=== PATIENT | male | born 1945 | race African-American/Black ===

== ENCOUNTER 2017-01-07 12:12 | Inpatient (IN) | payer MEDICARE, MEDICAID ==
[~2017-01-07] VITALS: Ht 193 cm; Wt 84.4 kg
[~2017-01-07 12:12] MED LIST: ALBU18HF2 IH; APIX5TAB PO; BECL8.7H BOTHNSTRLS; DIGO125T82 PO; DILT180T11 PO; DOCU-150 PO; Furosemide PO; HYDR-523 PO; METO-385 PO; NITR0.4T49 SL; OMEP20TA2 PO; SUCR1TAB PO; ZOLP5TAB8 PO
[2017-01-07] MEDS ORDERED: LORAZEPAM 2MG/ML CPJ IM ONE (13:30)
[2017-01-07 14:37] LABS: BASOPHILS % 0.8 % (0.0-2.0); EOSINOPHILS % 1.1 % (0.0-5.0); HEMATOCRIT. 42.6 % (42.0-52.0); HEMOGLOBIN. 14.8 g/dL (14.0-18.0); LYMPHOCYTES % 27.5 % (20.0-50.0); MEAN CORPUSCULAR HEMOGLOBIN 31.7 pg (28.0-32.0); MEAN CORPUSCULAR VOLUME 91.4 fL (80.0-94.0); MEAN PLATELET VOLUME 9.5 fl (7.4-10.4); MONOCYTES % 4.9 % (2.0-8.0); NEUTROPHILS % 65.7 % (40.0-76.0); PLATELET 130 x1000/uL (130-400); RED BLOOD CELL COUNT 4.66 mill/uL (4.7-6.1); RED CELL DISTRIBUTION WIDTH 13.6 % (11.6-14.6)
[2017-01-07 14:52] LABS: CARBON DIOXIDE 26 mEq/L (21-32); CHLORIDE 108 mEq/L (98-107)
[2017-01-07 15:22] LABS: TROPONIN I 0.03 ng/mL (0.00-0.04)
[2017-01-07] MEDS ORDERED: FUROSEMIDE 40MG/4ML VIAL IVP ONE (16:45)
[2017-01-07 17:40] VITALS: BP 109/74
[2017-01-07 17:42] VITALS: BP 109/74
[2017-01-07] MEDS ORDERED: METO50TA5 PO (18:00)
[2017-01-07] MEDS ORDERED: SACU1TAB PO (18:00)
[2017-01-07] MEDS ORDERED: MORPHINE SULFATE 2 MG/ML CPJ (NOT FOR IM USE) IV PRN (18:30)
[2017-01-07] MEDS ORDERED: IPRATROPIUM/ALBUTEROL 0.5-3(2.5)MG/3ML NEB HHN PRN (18:30)
[2017-01-07] MEDS ORDERED: ONDANSETRON HCL 4MG/2ML VIAL IV PRN (18:30)
[2017-01-07] MEDS: APIXABAN 5 MG TABLET PO SCH (18:35)
[2017-01-07 20:00] VITALS: BP 99/79
[2017-01-07] MEDS: METOPROLOL TARTRATE 50MG TABLET PO SCH (21:00)
[2017-01-08] VITALS (10 sets, daily range): BP systolic 83–142; BP diastolic 56–72
[2017-01-08] MEDS: FUROSEMIDE 40MG/4ML VIAL IVP SCH (08:03)
[2017-01-08] MEDS: APIXABAN 5 MG TABLET PO SCH ×2 (08:04→17:09)
[2017-01-08] MEDS: METOPROLOL TARTRATE 50MG TABLET PO SCH ×2 (08:28→21:00)
[2017-01-08] MEDS ORDERED: MEDICATION NOT ON FORMULARY EA (Sacubitril/Valsartan (Entresto 24 mg-26 mg Tablet) 1 EAC PO SCH (09:00)
[2017-01-08] MEDS ORDERED: NYSTATIN 100,000 UNITS/GM CREAM 15GM TOP PRN (14:00)
[2017-01-08] MEDS: LORAZEPAM 0.5MG TABLET PO PRN ×2 (14:16→21:13)
[2017-01-08] MEDS: MORPHINE SULFATE 4 MG/ML CPJ (NOT FOR IM USE) IV PRN (16:50)
[2017-01-09] VITALS (7 sets, daily range): BP systolic 95–121; BP diastolic 45–96
[2017-01-09 06:23] LABS: BASOPHILS % 0.7 % (0.0-2.0); EOSINOPHILS % 2.8 % (0.0-5.0); HEMATOCRIT. 43.1 % (42.0-52.0); HEMOGLOBIN. 14.8 g/dL (14.0-18.0); LYMPHOCYTES % 32.3 % (20.0-50.0); MEAN CORPUSCULAR HEMOGLOBIN 31.3 pg (28.0-32.0); MEAN CORPUSCULAR VOLUME 91.5 fL (80.0-94.0); MEAN PLATELET VOLUME 10.1 fl (7.4-10.4); MONOCYTES % 6.3 % (2.0-8.0); NEUTROPHILS % 57.9 % (40.0-76.0); PLATELET 120 x1000/uL (130-400); RED BLOOD CELL COUNT 4.71 mill/uL (4.7-6.1); RED CELL DISTRIBUTION WIDTH 13.5 % (11.6-14.6)
[2017-01-09] MEDS: METOPROLOL TARTRATE 50MG TABLET PO SCH ×3 (08:07→21:00)
[2017-01-09] MEDS: APIXABAN 5 MG TABLET PO SCH ×2 (08:07→18:07)
[2017-01-09] MEDS: FUROSEMIDE 40MG/4ML VIAL IVP SCH (08:07)
[2017-01-09 08:09] LABS: CARBON DIOXIDE 28 mEq/L (21-32); CHLORIDE 105 mEq/L (98-107)
[2017-01-09] MEDS ORDERED: POTASSIUM CHLORIDE 20MEQ/PACKET PO NR (10:00)
[2017-01-09] MEDS: MORPHINE SULFATE 4 MG/ML CPJ (NOT FOR IM USE) IV PRN ×2 (10:09→15:05)
[2017-01-09] MEDS ORDERED: DILTIAZEM HCL 5MG/ML 5ML VIAL IV NR (10:30)
[2017-01-09] MEDS: LORAZEPAM 0.5MG TABLET PO PRN (21:23)
[2017-01-10] VITALS (16 sets, daily range): BP systolic 74–151; BP diastolic 40–110
[2017-01-10 07:38] LABS: CARBON DIOXIDE 32 mEq/L (21-32); CHLORIDE 106 mEq/L (98-107)
[2017-01-10] MEDS: APIXABAN 5 MG TABLET PO SCH (07:47)
[2017-01-10] MEDS: METOPROLOL TARTRATE 50MG TABLET PO SCH ×2 (07:48→20:28)
[2017-01-10 07:58] LABS: BASOPHILS % 0.6 % (0.0-2.0); EOSINOPHILS % 2.8 % (0.0-5.0); HEMATOCRIT. 44.1 % (42.0-52.0); HEMOGLOBIN. 15.1 g/dL (14.0-18.0); LYMPHOCYTES % 33.3 % (20.0-50.0); MEAN CORPUSCULAR HEMOGLOBIN 31.5 pg (28.0-32.0); MEAN CORPUSCULAR VOLUME 91.9 fL (80.0-94.0); MONOCYTES % 6.6 % (2.0-8.0); NEUTROPHILS % 56.7 % (40.0-76.0); PLATELET 123 x1000/uL (130-400); RED CELL DISTRIBUTION WIDTH 13.8 % (11.6-14.6)
[2017-01-10] MEDS: MORPHINE SULFATE 4 MG/ML CPJ (NOT FOR IM USE) IV PRN ×2 (10:07→20:29)
[2017-01-10] MEDS: LORAZEPAM 0.5MG TABLET PO PRN (17:07)
[2017-01-10] MEDS: ENTRESTO PO SCH (20:28)
[2017-01-11] VITALS (26 sets, daily range): BP systolic 76–147; BP diastolic 36–92
[2017-01-11] MEDS: METOPROLOL TARTRATE 50MG TABLET PO SCH ×2 (08:52→21:58)
[2017-01-11] MEDS: ENTRESTO PO SCH ×2 (08:52→21:53)
[2017-01-11] MEDS ORDERED: MIDAZOLAM HCL 5 MG/5 ML VIAL ONE (10:26)
[2017-01-11] MEDS ORDERED: FENTANYL CITRATE/PF 50MCG/ML 2ML VIAL ONE (10:26)
[2017-01-11] MEDS ORDERED: LIDOCAINE HCL 1% 20ML VIAL (Pyxis) INJ ONE (10:27)
[2017-01-11] MEDS ORDERED: DIPHENHYDRAMINE 50MG/ML VIAL ONE (10:57)
[2017-01-11] MEDS ORDERED: ONDANSETRON HCL 4MG/2ML VIAL IV PRN (12:15)
[2017-01-11] MEDS ORDERED: HEPARIN SODIUM 1,000 UNIT/1ML VIAL IV ONE (14:58)
[2017-01-11] MEDS: ACETAMINOPHEN 325MG TABLET PO PRN ×2 (17:04→21:58)
[2017-01-12] VITALS: BP 94/73
[2017-01-12 02:00] VITALS: BP 105/77
[2017-01-12 04:00] VITALS: BP 81/55
[2017-01-12 05:48] VITALS: BP 104/74
== END 2017-01-12 07:45 | disposition home or self-care (01) | DRG 273 ==
LOC: ER 12:46 → EDBEDREQ 16:33 → EDBEDREQTM 16:33 → 7WST 16:40 → ENRESERV 16:48 → 3WST 01-09 10:01
PROVIDERS: ADMIT Internal Medicine Nephrology; ATTEND Internal Medicine Nephrology
PROC: 02583ZZ Destruction of Conduction Mechanism, Percutaneous Approach (ICD-10-PCS; principal; 2017-01-11)
PROC: 02K83ZZ Map Conduction Mechanism, Percutaneous Approach (ICD-10-PCS; 2017-01-11)
PROC: 4A0234Z Measurement of Cardiac Electrical Activity, Percutaneous Approach (ICD-10-PCS; 2017-01-11)
DX: I50.43 Acute on chronic combined systolic (congestive) and diastolic (congestive) heart failure (principal); J96.00 Acute respiratory failure, unspecified whether with hypoxia or hypercapnia; I42.9 Cardiomyopathy, unspecified; I47.1 Supraventricular tachycardia; J44.1 Chronic obstructive pulmonary disease with (acute) exacerbation; I27.2 Other secondary pulmonary hypertension; I11.0 Hypertensive heart disease with heart failure; I48.2 Chronic atrial fibrillation; Z95.810 Presence of automatic (implantable) cardiac defibrillator; E78.5 Hyperlipidemia, unspecified; K21.9 Gastro-esophageal reflux disease without esophagitis; Z91.19 Patient's noncompliance with other medical treatment and regimen; F41.9 Anxiety disorder, unspecified; Z91.041 Radiographic dye allergy status; Z88.0 Allergy status to penicillin; Z91.013 Allergy to seafood
CPT/HCPCS: 36415; 71010; 80048; 80053; 83735; 83880; 84484; 85025; 93005; 93650; 96372; 96374; 99285; C1731; C1732; C1893; J1200; J1644; J1940; J2060; J2250; J2270; J3010; J3490; J7030

== ENCOUNTER 2018-02-14 14:58 | Inpatient (IN) | payer MEDICARE, MEDICAID ==
[~2018-02-14] VITALS: Ht 193 cm; Wt 79.4 kg
[~2018-02-14 14:58] MED LIST changes: -ALBU18HF2 IH; -BECL8.7H BOTHNSTRLS; -DIGO125T82 PO; -DILT180T11 PO; -DOCU-150 PO; -Furosemide PO; -HYDR-523 PO; -METO-385 PO; +METO-539 PO; -NITR0.4T49 SL; -OMEP20TA2 PO; +SACU1TAB PO; -SUCR1TAB PO; -ZOLP5TAB8 PO
[2018-02-14] MEDS ORDERED: LEVOFLOXACIN 750MG PREMIX 150 ML IV ONE (15:45)
[2018-02-14] MEDS ORDERED: SODIUM CHLORIDE 0.9% 1000ML BAG (SEPSIS BOLUS) IV ONE (15:45)
[2018-02-14 15:46] LABS: BASOPHILS % 0.6 % (0.0-2.0); EOSINOPHILS % 0.7 % (0.0-5.0); HEMATOCRIT. 46.4 % (42.0-52.0); HEMOGLOBIN. 15.8 g/dL (14.0-18.0); LYMPHOCYTES % 10.8 % (20.0-50.0); MEAN CORPUSCULAR HEMOGLOBIN 32.3 pg (28.0-32.0); MEAN CORPUSCULAR VOLUME 94.9 fL (80.0-94.0); MEAN PLATELET VOLUME 10.1 fl (7.4-10.4); MONOCYTES % 5.1 % (2.0-8.0); NEUTROPHILS % 82.8 % (40.0-76.0); PLATELET 126 x1000/uL (130-400); RED BLOOD CELL COUNT 4.88 mill/uL (4.7-6.1); RED CELL DISTRIBUTION WIDTH 13.7 % (11.6-14.6)
[2018-02-14 15:53] LABS: CHLORIDE 105 mEq/L (98-107)
[2018-02-14 16:17] LABS: INR 5.7
[2018-02-14 16:18] LABS: PARTIAL THROMBOPLASTIN TIME 38.1 sec (23.4-31.0); PROTHROMBIN TIME 55.2 sec (9.1-11.1)
[2018-02-14 17:06] LABS: CLARITY URINE CLEAR (CLEAR); COLOR URINE YELLOW (YELLOW); KETONES URINE NEGATIVE (NEGATIVE); LEUKOCYTE ESTERASE URINE NEGATIVE (NEGATIVE); NITRITE URINE NEGATIVE (NEGATIVE); OCCULT BLOOD URINE NEGATIVE (NEGATIVE); PH URINE 8.5 (4.5-8.0); PROTEIN URINE NEGATIVE (NEGATIVE); SPECIFIC GRAVITY URINE 1.018 (1.005-1.030); UROBILINOGEN URINE 0.2 E.U./dL (0.2-1.0)
[2018-02-14] MEDS ORDERED: IOHEXOL-350 100 ML BOTTLE ONE (19:24)
[2018-02-14] MEDS ORDERED: ASPIRIN 325MG EC TABLET PO ONE (20:00)
[2018-02-14] MEDS ORDERED: IPRATROPIUM/ALBUTEROL 0.5-3(2.5)MG/3ML NEB INH PRN (22:45)
[2018-02-14] MEDS ORDERED: ENOXAPARIN 40MG/0.4ML SYR SUBCUT SCH (22:45)
[2018-02-14 23:23] LABS: *AMPHETAMINES SCREEN URINE NEGATIVE (NEGATIVE); *BARBITURATES SCREEN URINE NEGATIVE (NEGATIVE); *BENZODIAZEPINES SCREEN URINE NEGATIVE (NEGATIVE); *COCAINE SCREEN URINE NEGATIVE (NEGATIVE); CANNABINOID URINE SCREEN PRESUMTIVE POSITIVE (NEGATIVE); METHADONE URINE SCREEN NEGATIVE (NEGATIVE); OPIATES URINE SCREEN PRESUMTIVE POSITIVE (NEGATIVE); PHENCYCLIDINE URINE SCREEN NEGATIVE (NEGATIVE)
[2018-02-14 23:40] VITALS: BP 154/83
[2018-02-15] VITALS: BP 154/83
[2018-02-15 04:00] VITALS: BP 121/68
[2018-02-15 07:36] LABS: CREATINE KINASE 65 IU/L (39-308); CREATINE KINASE MB FRACTION < 1.0 ng/mL (0.5-3.6)
[2018-02-15] MEDS: LORAZEPAM 2MG/ML CPJ IV PRN ×2 (09:12→22:29)
[2018-02-15] MEDS ORDERED: GUAIFENESIN/CODEINE 100-10MG/5ML UDC PO PRN (12:30)
[2018-02-15] MEDS ORDERED: IPRATROPIUM/ALBUTEROL 0.5-3(2.5)MG/3ML NEB HHN PRN (12:30)
[2018-02-15 12:41] VITALS: BP 132/86
[2018-02-15] MEDS ORDERED: NON FORMULARY PATIENT HOME MED EA PO SCH (14:00)
[2018-02-15] MEDS ORDERED: LEVOFLOXACIN 500MG PREMIX 100 ML IV SCH (16:00)
[2018-02-15 16:33] LABS: HEMATOCRIT 41.4 % (42.0-52.0); HEMOGLOBIN 13.9 g/dL (14.0-18.0); MEAN CORPUSCULAR HEMOGLOBIN 32.2 pg (28.0-32.0); MEAN CORPUSCULAR VOLUME 95.7 fL (80.0-94.0); PLATELET 106 x1000/uL (130-400); RED BLOOD CELL COUNT 4.32 mill/uL (4.7-6.1); RED CELL DISTRIBUTION WIDTH 13.7 % (11.6-14.6)
[2018-02-15 16:44] LABS: INR 1.2; PROTHROMBIN TIME 11.6 sec (9.1-11.1)
[2018-02-15 16:45] VITALS: BP 165/101
[2018-02-15 16:50] LABS: CHLORIDE 106 mEq/L (98-107)
[2018-02-15 17:41] LABS: CREATINE KINASE 78 IU/L (39-308); CREATINE KINASE MB FRACTION 1.1 ng/mL (0.5-3.6)
[2018-02-15] MEDS ORDERED: METOPROLOL TARTRATE 50MG TABLET PO SCH ×2 (19:15→21:00)
[2018-02-15] MEDS ORDERED: APIXABAN 5 MG TABLET PO SCH (19:30)
[2018-02-15] MEDS: METOPROLOL TARTRATE 50MG TABLET PO SCH (19:36)
[2018-02-15] MEDS: APIXABAN 5 MG TABLET PO SCH (19:37)
[2018-02-15 20:00] VITALS: BP 147/87
[2018-02-16] VITALS: BP 147/96
[2018-02-16 04:00] VITALS: BP 139/86
[2018-02-16 07:19] LABS: BASOPHILS % 0.5 % (0.0-2.0); EOSINOPHILS % 2.8 % (0.0-5.0); HEMATOCRIT. 40.6 % (42.0-52.0); HEMOGLOBIN. 13.9 g/dL (14.0-18.0); LYMPHOCYTES % 12.1 % (20.0-50.0); MEAN CORPUSCULAR HEMOGLOBIN 32.3 pg (28.0-32.0); MEAN CORPUSCULAR VOLUME 94.3 fL (80.0-94.0); MEAN PLATELET VOLUME 10.6 fl (7.4-10.4); MONOCYTES % 8.4 % (2.0-8.0); NEUTROPHILS % 76.2 % (40.0-76.0); PLATELET 106 x1000/uL (130-400); RED BLOOD CELL COUNT 4.31 mill/uL (4.7-6.1); RED CELL DISTRIBUTION WIDTH 13.8 % (11.6-14.6)
[2018-02-16 08:00] VITALS: BP 140/94
[2018-02-16] MEDS: APIXABAN 5 MG TABLET PO SCH (08:31)
[2018-02-16] MEDS: METOPROLOL TARTRATE 50MG TABLET PO SCH (08:32)
[2018-02-16] MEDS: LORAZEPAM 2MG/ML CPJ IV PRN (09:55)
[2018-02-16 11:24] LABS: CHLORIDE 106 mEq/L (98-107)
[2018-02-16 11:27] LABS: PHOSPHORUS 2.9 mg/dL (2.5-4.9)
[2018-02-16 12:00] VITALS: BP 128/82
[2018-02-16 14:22] VITALS: BP 128/82
== END 2018-02-16 15:13 | disposition home or self-care (01) | DRG 202 ==
LOC: ER 14:58 → 8WST 19:58 → EDBEDREQTM 20:03 → EDBEDREQ 20:03 → ENRESERV 22:02 → SUPCPDRO 22:42
PROVIDERS: ADMIT Internal Medicine Nephrology; ATTEND Internal Medicine Nephrology
DX: J20.9 Acute bronchitis, unspecified (principal); I42.0 Dilated cardiomyopathy; I50.42 Chronic combined systolic (congestive) and diastolic (congestive) heart failure; J44.0 Chronic obstructive pulmonary disease with (acute) lower respiratory infection; D68.9 Coagulation defect, unspecified; F41.9 Anxiety disorder, unspecified; F19.10 Other psychoactive substance abuse, uncomplicated; H54.62 Unqualified visual loss, left eye, normal vision right eye; I11.0 Hypertensive heart disease with heart failure; I48.2 Chronic atrial fibrillation; Z79.01 Long term (current) use of anticoagulants; Z91.19 Patient's noncompliance with other medical treatment and regimen; Z95.810 Presence of automatic (implantable) cardiac defibrillator; Z88.0 Allergy status to penicillin; Z91.041 Radiographic dye allergy status; Z91.013 Allergy to seafood; Z79.899 Other long term (current) drug therapy
CPT/HCPCS: 36415; 71045; 71275; 80048; 80076; 80305; 82550; 82553; 83605; 83735; 83880; 84100; 84145; 84484; 85027; 85379; 87804; 93005; 96365; 99285; J1956; J2060; J7030; J7050; J7620; Q9967

== ENCOUNTER 2018-03-05 11:11 | Inpatient (IN) | payer MEDICARE, MEDICAID ==
[~2018-03-05] VITALS: Ht 375.9 cm; Wt 78.9 kg
[2018-03-05] MEDS ORDERED: MECLIZINE 25MG TABLET PO ONE (13:15)
[2018-03-05 14:50] LABS: BASOPHILS % 0.4 % (0.0-2.0); HEMATOCRIT. 44.2 % (42.0-52.0); HEMOGLOBIN. 15.1 g/dL (14.0-18.0); LYMPHOCYTES % 25.7 % (20.0-50.0); MEAN CORPUSCULAR HEMOGLOBIN 32.2 pg (28.0-32.0); MEAN CORPUSCULAR VOLUME 93.9 fL (80.0-94.0); MEAN PLATELET VOLUME 10.2 fl (7.4-10.4); MONOCYTES % 7.3 % (2.0-8.0); NEUTROPHILS % 65.6 % (40.0-76.0); PLATELET 133 x1000/uL (130-400); RED CELL DISTRIBUTION WIDTH 13.5 % (11.6-14.6)
[2018-03-05 14:58] LABS: CHLORIDE 106 mEq/L (98-107)
[2018-03-05 15:07] LABS: ETHANOL BLOOD < 10 mg/dL
[2018-03-05 15:57] LABS: *AMPHETAMINES SCREEN URINE NEGATIVE (NEGATIVE); *BARBITURATES SCREEN URINE NEGATIVE (NEGATIVE); *BENZODIAZEPINES SCREEN URINE NEGATIVE (NEGATIVE); *COCAINE SCREEN URINE NEGATIVE (NEGATIVE); CANNABINOID URINE SCREEN PRESUMTIVE POSITIVE (NEGATIVE); METHADONE URINE SCREEN NEGATIVE (NEGATIVE); OPIATES URINE SCREEN NEGATIVE (NEGATIVE); PHENCYCLIDINE URINE SCREEN NEGATIVE (NEGATIVE)
[2018-03-05] MEDS ORDERED: ONDANSETRON HCL 4MG/2ML INJ IV ONE (16:33)
[2018-03-05] MEDS ORDERED: MORPHINE SULFATE 4 MG/ML CPJ (NOT FOR IM USE) IV ONE (16:33)
[2018-03-05] MEDS ORDERED: ASPIRIN 325MG TABLET PO ONE (16:45)
[2018-03-05] MEDS: MORPHINE SULFATE 4 MG/ML CPJ (NOT FOR IM USE) IV PRN (20:59)
[2018-03-05] MEDS ORDERED: ACETAMINOPHEN 650MG/20.3ML UDC GT PRN (23:00)
[2018-03-05] MEDS ORDERED: DIPHENHYDRAMINE 50MG/ML VIAL IV PRN (23:00)
[2018-03-05] MEDS ORDERED: LORAZEPAM 2MG/ML CPJ IV PRN (23:00)
[2018-03-05] MEDS ORDERED: ONDANSETRON HCL 4MG/2ML INJ IV PRN (23:00)
[2018-03-05] MEDS ORDERED: CLONIDINE 0.1MG TABLET PO PRN (23:00)
[2018-03-05] MEDS ORDERED: ACETAMINOPHEN 325MG TABLET PO PRN (23:00)
[2018-03-06] VITALS (7 sets, daily range): BP systolic 119–141; BP diastolic 83–91
[2018-03-06] MEDS: DEXT 5%/0.45% NACL 1000ML 1,000 ML IV SCH ×2 (00:57→09:21)
[2018-03-06] MEDS: MORPHINE SULFATE 4 MG/ML CPJ (NOT FOR IM USE) IV PRN ×3 (05:59→20:01)
[2018-03-06 07:32] LABS: BASOPHILS % 0.5 % (0.0-2.0); CHLORIDE 106 mEq/L (98-107); EOSINOPHILS % 2.7 % (0.0-5.0); HEMATOCRIT. 43.6 % (42.0-52.0); HEMOGLOBIN. 14.7 g/dL (14.0-18.0); LYMPHOCYTES % 37.5 % (20.0-50.0); MEAN CORPUSCULAR HEMOGLOBIN 31.8 pg (28.0-32.0); MEAN CORPUSCULAR VOLUME 94.5 fL (80.0-94.0); MEAN PLATELET VOLUME 10.2 fl (7.4-10.4); NEUTROPHILS % 50.3 % (40.0-76.0); PLATELET 127 x1000/uL (130-400); RED BLOOD CELL COUNT 4.61 mill/uL (4.7-6.1); RED CELL DISTRIBUTION WIDTH 13.5 % (11.6-14.6)
[2018-03-06 07:39] LABS: CLARITY URINE CLEAR (CLEAR); COLOR URINE YELLOW (YELLOW); KETONES URINE TRACE (NEGATIVE); LEUKOCYTE ESTERASE URINE NEGATIVE (NEGATIVE); NITRITE URINE NEGATIVE (NEGATIVE); OCCULT BLOOD URINE NEGATIVE (NEGATIVE); PH URINE 5.5 (4.5-8.0); PROTEIN URINE NEGATIVE (NEGATIVE); SPECIFIC GRAVITY URINE 1.024 (1.005-1.030); UROBILINOGEN URINE 0.2 E.U./dL (0.2-1.0)
[2018-03-06 07:47] LABS: CREATINE KINASE 49 IU/L (39-308); CREATINE KINASE MB FRACTION 1.7 ng/mL (0.5-3.6); PHOSPHORUS 3.7 mg/dL (2.5-4.9)
[2018-03-06] MEDS ORDERED: ENOXAPARIN 40MG/0.4ML SYR SUBCUT SCH (09:00)
[2018-03-06] MEDS ORDERED: FUROSEMIDE 20MG/2ML VIAL IVP NR (13:30)
[2018-03-06] MEDS: METOPROLOL TARTRATE 50MG TABLET PO SCH ×2 (16:05→20:29)
[2018-03-06] MEDS: APIXABAN 5 MG TABLET PO SCH (16:13)
[2018-03-06 16:27] LABS: CREATINE KINASE 46 IU/L (39-308); CREATINE KINASE MB FRACTION 1.4 ng/mL (0.5-3.6)
[2018-03-06] MEDS ORDERED: LEVOFLOXACIN 500MG PREMIX 100 ML IV SCH (20:00)
[2018-03-06] MEDS ORDERED: METOPROLOL TARTRATE 25MG TABLET PO SCH (21:00)
[2018-03-07] VITALS: BP 115/79
[2018-03-07 04:00] VITALS: BP 125/92
[2018-03-07 06:40] LABS: BASOPHILS % 0.6 % (0.0-2.0); EOSINOPHILS % 3.1 % (0.0-5.0); HEMATOCRIT. 42.6 % (42.0-52.0); HEMOGLOBIN. 14.5 g/dL (14.0-18.0); LYMPHOCYTES % 34.7 % (20.0-50.0); MEAN CORPUSCULAR VOLUME 93.9 fL (80.0-94.0); MONOCYTES % 7.7 % (2.0-8.0); NEUTROPHILS % 53.9 % (40.0-76.0); PLATELET 128 x1000/uL (130-400); RED BLOOD CELL COUNT 4.54 mill/uL (4.7-6.1); RED CELL DISTRIBUTION WIDTH 13.3 % (11.6-14.6)
[2018-03-07 06:48] LABS: CHLORIDE 104 mEq/L (98-107)
[2018-03-07 08:00] VITALS: BP 136/90
[2018-03-07] MEDS: APIXABAN 5 MG TABLET PO SCH (08:59)
[2018-03-07] MEDS: METOPROLOL TARTRATE 50MG TABLET PO SCH (08:59)
[2018-03-07 09:18] VITALS: BP 136/90
== END 2018-03-07 10:30 | disposition home or self-care (01) | DRG 202 ==
LOC: ER 11:11 → EDBEDREQ 16:23 → EDBEDREQTM 16:23 → 8WST 17:01 → EDBEDREQ 17:05 → EDBEDREQTM 17:05 → ENRESERV 22:07
PROVIDERS: ADMIT Internal Medicine Nephrology; ATTEND Internal Medicine Nephrology
DX: J20.9 Acute bronchitis, unspecified (principal); I50.43 Acute on chronic combined systolic (congestive) and diastolic (congestive) heart failure; F12.90 Cannabis use, unspecified, uncomplicated; I11.0 Hypertensive heart disease with heart failure; H53.40 Unspecified visual field defects; I25.10 Atherosclerotic heart disease of native coronary artery without angina pectoris; F41.9 Anxiety disorder, unspecified; R42 Dizziness and giddiness; R07.89 Other chest pain; I48.2 Chronic atrial fibrillation; I50.9 Heart failure, unspecified; Z95.810 Presence of automatic (implantable) cardiac defibrillator; Z82.49 Family history of ischemic heart disease and other diseases of the circulatory system; Z86.73 Personal history of transient ischemic attack (TIA), and cerebral infarction without residual deficits; Z87.891 Personal history of nicotine dependence; Z88.0 Allergy status to penicillin; Z91.013 Allergy to seafood; Z91.048 Other nonmedicinal substance allergy status; Z79.01 Long term (current) use of anticoagulants
CPT/HCPCS: 36415; 71045; 80048; 80305; 82010; 82550; 82553; 83735; 83880; 84100; 84484; 93005; 96374; 96375; 99285; G0482; J1650; J1940; J1956; J2060; J2270; J2405; J8597

== ENCOUNTER 2018-07-18 05:15 | Emergency (ER) | payer MEDICARE, MEDICAID ==
[~2018-07-18] VITALS: Ht 193 cm; Wt 82.0 kg
[2018-07-18 07:35] VITALS: BP 116/73
== END 2018-07-18 07:45 | disposition home or self-care (01) ==
LOC: ER 05:15
DX: H60.91 Unspecified otitis externa, right ear (principal); I50.9 Heart failure, unspecified; F41.9 Anxiety disorder, unspecified; I48.91 Unspecified atrial fibrillation; F12.10 Cannabis abuse, uncomplicated; Z95.0 Presence of cardiac pacemaker; Z79.899 Other long term (current) drug therapy; Z88.0 Allergy status to penicillin; Z91.048 Other nonmedicinal substance allergy status
CPT/HCPCS: 99283

== ENCOUNTER 2018-07-21 03:02 | Emergency (ER) | payer MEDICARE, MEDICAID ==
[~2018-07-21] VITALS: Ht 190.5 cm; Wt 95.0 kg
[2018-07-21 03:24] VITALS: BP 180/112
== END 2018-07-21 05:36 | disposition home or self-care (01) ==
LOC: ER 03:34
DX: F12.10 Cannabis abuse, uncomplicated (principal); I50.9 Heart failure, unspecified; R00.2 Palpitations; Z95.0 Presence of cardiac pacemaker; Z91.041 Radiographic dye allergy status; Z88.0 Allergy status to penicillin; Z91.013 Allergy to seafood; Z79.899 Other long term (current) drug therapy
CPT/HCPCS: 99283

== ENCOUNTER 2019-12-15 20:09 | Inpatient (IN) | payer MEDICARE, MEDICAID ==
[~2019-12-15] VITALS: Ht 193 cm; Wt 77.2 kg
[2019-12-15] MEDS: NITROGLYCERIN 0.4MG TABLET SL SL PRN ×2 (22:26→22:38)
[2019-12-15 22:28] LABS: BASOPHILS % 1.3 % (0.0-2.0); EOSINOPHILS % 2.4 % (0.0-5.0); HEMATOCRIT. 42.9 % (42.0-52.0); HEMOGLOBIN. 14.7 g/dL (14.0-18.0); LYMPHOCYTES % 35.3 % (20.0-50.0); MEAN CORPUSCULAR HEMOGLOBIN 32.4 pg (28.0-32.0); MEAN CORPUSCULAR VOLUME 94.9 fL (80.0-94.0); MEAN PLATELET VOLUME 10.7 fl (7.4-10.4); MONOCYTES % 7.5 % (2.0-8.0); NEUTROPHILS % 53.5 % (40.0-76.0); PLATELET 109 x1000/uL (130-400); RED BLOOD CELL COUNT 4.52 mill/uL (4.7-6.1); RED CELL DISTRIBUTION WIDTH 14.4 % (11.6-14.6)
[2019-12-15 22:36] LABS: CHLORIDE 106 mEq/L (98-107)
[2019-12-15 22:39] LABS: PROTHROMBIN TIME 10.9 sec (9.6-11.0)
[2019-12-16] MEDS ORDERED: SODIUM CHLORIDE 0.9% 500 ML IV ONE (00:01)
[2019-12-16] MEDS ORDERED: ONDANSETRON HCL 4MG/2ML INJ IV PRN (12:15)
[2019-12-16] MEDS: ACETAMINOPHEN 325MG TABLET PO PRN (12:50)
[2019-12-16] MEDS ORDERED: ENOXAPARIN 40MG/0.4ML SYR SUBCUT SCH (13:00)
[2019-12-16] MEDS: LOSARTAN POTASSIUM 25 MG TABLET PO SCH (14:00)
[2019-12-16 14:42] LABS: LDL CHOLESTEROL 42 mg/dL (5-100)
[2019-12-16 14:45] LABS: HDL CHOLESTEROL 86 mg/dL (40-59)
[2019-12-16] MEDS: APIXABAN 5 MG TABLET PO SCH (15:00)
[2019-12-16] MEDS: ALPRAZOLAM 0.25 MG TABLET PO PRN (18:48)
[2019-12-16 20:01] LABS: *AMPHETAMINES SCREEN URINE NEGATIVE (NEGATIVE); *BARBITURATES SCREEN URINE NEGATIVE (NEGATIVE); CANNABINOID URINE SCREEN PRESUMTIVE POSITIVE (NEGATIVE); METHADONE URINE SCREEN NEGATIVE (NEGATIVE); OPIATES URINE SCREEN NEGATIVE (NEGATIVE); PHENCYCLIDINE URINE SCREEN NEGATIVE (NEGATIVE)
[2019-12-16 20:02] LABS: *BENZODIAZEPINES SCREEN URINE NEGATIVE (NEGATIVE); *COCAINE SCREEN URINE NEGATIVE (NEGATIVE)
[2019-12-16] MEDS: METOPROLOL TARTRATE 25MG TABLET PO SCH (22:23)
[2019-12-16] MEDS: FAMOTIDINE 20MG TABLET PO SCH (22:26)
[2019-12-16 23:00] VITALS: BP 118/95
[2019-12-17] MEDS: APIXABAN 5 MG TABLET PO SCH ×3 (00:01→20:55)
[2019-12-17] MEDS: ALPRAZOLAM 0.25 MG TABLET PO PRN ×2 (02:58→12:15)
[2019-12-17 04:00] VITALS: BP 99/64
[2019-12-17 06:20] LABS: BASOPHILS % 0.8 % (0.0-2.0); EOSINOPHILS % 2.7 % (0.0-5.0); HEMATOCRIT. 39.1 % (42.0-52.0); HEMOGLOBIN. 13.4 g/dL (14.0-18.0); MEAN CORPUSCULAR HEMOGLOBIN 32.1 pg (28.0-32.0); MEAN CORPUSCULAR VOLUME 94.1 fL (80.0-94.0); MEAN PLATELET VOLUME 10.5 fl (7.4-10.4); MONOCYTES % 8.5 % (2.0-8.0); PLATELET 108 x1000/uL (130-400); RED BLOOD CELL COUNT 4.16 mill/uL (4.7-6.1)
[2019-12-17 06:34] LABS: CHLORIDE 109 mEq/L (98-107)
[2019-12-17 08:00] VITALS: BP 125/74
[2019-12-17] MEDS: ASPIRIN 81MG TABLET PO SCH (09:50)
[2019-12-17] MEDS: LOSARTAN POTASSIUM 25 MG TABLET PO SCH (09:50)
[2019-12-17] MEDS: METOPROLOL TARTRATE 25MG TABLET PO SCH ×2 (09:51→21:00)
[2019-12-17] MEDS: ACETAMINOPHEN 325MG TABLET PO PRN (10:02)
[2019-12-17 12:00] VITALS: BP 117/82
[2019-12-17] MEDS ORDERED: FUROSEMIDE 20MG/2ML VIAL IVP NR (17:15)
[2019-12-17 18:00] VITALS: BP 124/83
[2019-12-17] MEDS: LORATADINE 10MG TABLET PO SCH (18:51)
[2019-12-17] MEDS ORDERED: KETOROLAC 15MG/ML VIAL IV PRN (19:00)
[2019-12-17 20:35] VITALS: BP 110/74
[2019-12-17] MEDS: FAMOTIDINE 20MG TABLET PO SCH (20:55)
[2019-12-17] MEDS: TRAMADOL 50MG TABLET PO PRN (21:07)
[2019-12-18 00:36] VITALS: BP 109/76
[2019-12-18 04:00] VITALS: BP 114/77
[2019-12-18 08:00] VITALS: BP 137/86
[2019-12-18] MEDS: ASPIRIN 81MG TABLET PO SCH (09:17)
[2019-12-18] MEDS: TRAMADOL 50MG TABLET PO PRN (09:17)
[2019-12-18] MEDS: METOPROLOL TARTRATE 25MG TABLET PO SCH ×2 (09:18→22:39)
[2019-12-18] MEDS: LORATADINE 10MG TABLET PO SCH (09:18)
[2019-12-18] MEDS: LOSARTAN POTASSIUM 25 MG TABLET PO SCH (09:18)
[2019-12-18] MEDS: APIXABAN 5 MG TABLET PO SCH ×2 (09:18→22:39)
[2019-12-18 10:06] LABS: BASOPHILS % 0.9 % (0.0-2.0); EOSINOPHILS % 2.7 % (0.0-5.0); HEMATOCRIT. 41.5 % (42.0-52.0); HEMOGLOBIN. 14.1 g/dL (14.0-18.0); LYMPHOCYTES % 24.7 % (20.0-50.0); MEAN CORPUSCULAR HEMOGLOBIN 32.3 pg (28.0-32.0); MEAN CORPUSCULAR VOLUME 95.4 fL (80.0-94.0); MEAN PLATELET VOLUME 10.8 fl (7.4-10.4); MONOCYTES % 5.4 % (2.0-8.0); NEUTROPHILS % 66.3 % (40.0-76.0); PLATELET 106 x1000/uL (130-400); RED BLOOD CELL COUNT 4.35 mill/uL (4.7-6.1); RED CELL DISTRIBUTION WIDTH 14.1 % (11.6-14.6)
[2019-12-18 10:33] LABS: CHLORIDE 106 mEq/L (98-107)
[2019-12-18] MEDS ORDERED: CLAR10 MT (11:06)
[2019-12-18 12:00] VITALS: BP 117/72
[2019-12-18] MEDS: ALPRAZOLAM 0.25 MG TABLET PO PRN (15:47)
[2019-12-18 16:00] VITALS: BP 127/85
[2019-12-18 20:00] VITALS: BP 120/88
[2019-12-18] MEDS: FAMOTIDINE 20MG TABLET PO SCH (22:39)
[2019-12-19] VITALS (7 sets, daily range): BP systolic 117–126; BP diastolic 78–90
[2019-12-19] MEDS: ALPRAZOLAM 0.25 MG TABLET PO PRN ×2 (02:29→21:00)
[2019-12-19] MEDS: LOSARTAN POTASSIUM 25 MG TABLET PO SCH (08:33)
[2019-12-19] MEDS: APIXABAN 5 MG TABLET PO SCH ×2 (08:33→20:55)
[2019-12-19] MEDS: ASPIRIN 81MG TABLET PO SCH (08:33)
[2019-12-19] MEDS: LORATADINE 10MG TABLET PO SCH (08:33)
[2019-12-19] MEDS: METOPROLOL TARTRATE 25MG TABLET PO SCH ×2 (08:36→20:55)
[2019-12-19] MEDS: TRAMADOL 50MG TABLET PO PRN ×2 (08:37→18:29)
[2019-12-19] MEDS ORDERED: IPRATROPIUM/ALBUTEROL 0.5-3(2.5)MG/3ML NEB HHN PRN (11:00)
[2019-12-19] MEDS: FAMOTIDINE 20MG TABLET PO SCH (20:55)
[2019-12-20 04:25] VITALS: BP 104/70
[2019-12-20 08:00] VITALS: BP 131/89
[2019-12-20] MEDS: LOSARTAN POTASSIUM 25 MG TABLET PO SCH (08:56)
[2019-12-20] MEDS: ASPIRIN 81MG TABLET PO SCH (08:56)
[2019-12-20] MEDS: METOPROLOL TARTRATE 25MG TABLET PO SCH (08:56)
[2019-12-20] MEDS: APIXABAN 5 MG TABLET PO SCH (08:56)
[2019-12-20] MEDS: LORATADINE 10MG TABLET PO SCH (08:56)
[2019-12-20 12:00] VITALS: BP 132/80
[2019-12-20 12:18] VITALS: BP 134/80
== END 2019-12-20 13:46 | disposition home or self-care (01) | DRG 205 ==
LOC: ER 20:09 → EDBEDREQTM 22:22 → 6WST 12-16 00:40 → EDBEDREQDT 12-16 00:43 → EDBEDREQ 12-16 00:43 → EDBEDREQTM 12-16 00:43 → ENRESERV 12-16 21:27
PROVIDERS: ADMIT Internal Medicine Nephrology; ATTEND Internal Medicine Nephrology
PROC: 4B02XTZ Measurement of Cardiac Defibrillator, External Approach (ICD-10-PCS; principal; 2019-12-17)
DX: M94.0 Chondrocostal junction syndrome [Tietze] (principal); J96.01 Acute respiratory failure with hypoxia; I50.23 Acute on chronic systolic (congestive) heart failure; I42.0 Dilated cardiomyopathy; I48.20 Chronic atrial fibrillation, unspecified; K21.9 Gastro-esophageal reflux disease without esophagitis; F12.10 Cannabis abuse, uncomplicated; I34.0 Nonrheumatic mitral (valve) insufficiency; I25.10 Atherosclerotic heart disease of native coronary artery without angina pectoris; I49.3 Ventricular premature depolarization; I11.0 Hypertensive heart disease with heart failure; Z95.810 Presence of automatic (implantable) cardiac defibrillator; Z79.01 Long term (current) use of anticoagulants; Z88.8 Allergy status to other drugs, medicaments and biological substances; Z91.041 Radiographic dye allergy status; Z88.0 Allergy status to penicillin; Z91.013 Allergy to seafood; Z87.891 Personal history of nicotine dependence
CPT/HCPCS: 36415; 71045; 80048; 80053; 80061; 80305; 83735; 83880; 84484; 85025; 85379; 93005; 93306; 96360; 99285; J1885; J1940; J2405; J7040

== ENCOUNTER 2021-11-18 07:01 | Inpatient (IN) | payer OTHER, MEDICAID ==
[2021-11-17 20:25] VITALS: BP 150/101
[~2021-11-18] VITALS: Ht 193 cm; Wt 93.0 kg
[~2021-11-18 07:01] MED LIST changes: +ALBU90AE INH; +BIMA2.5D4 EACHEYE; +COR3 PO; +FLOV44 IH; +FURO-152 PO; -METO-539 PO; +NITR0.4T49 SL; +PANT20TA17 PO; +SUCR1TAB PO
[2021-11-18] MEDS: NITROGLYCERIN 0.4MG TABLET SL SL PRN ×3 (07:30→07:55)
[2021-11-18] MEDS ORDERED: MORPHINE SULFATE 4 MG/ML CPJ (NOT FOR IM USE) IV ONE (07:45)
[2021-11-18 07:50] LABS: BASOPHILS % 0.3 % (0.0-2.0); EOSINOPHILS % 1.3 % (0.0-5.0); HEMATOCRIT. 46.5 % (42.0-52.0); HEMOGLOBIN. 15.7 g/dL (14.0-18.0); LYMPHOCYTES % 14.3 % (20.0-50.0); MEAN CORPUSCULAR HEMOGLOBIN 32.3 pg (28.0-32.0); MEAN CORPUSCULAR VOLUME 95.8 fL (80.0-94.0); MEAN PLATELET VOLUME 10.2 fl (7.4-10.4); MONOCYTES % 4.7 % (2.0-8.0); NEUTROPHILS % 79.4 % (40.0-76.0); PLATELET 135 x1000/uL (130-400); RED BLOOD CELL COUNT 4.86 mill/uL (4.7-6.1)
[2021-11-18 08:00] LABS: CHLORIDE 110 mEq/L (98-107)
[2021-11-18] MEDS ORDERED: MORPHINE SULFATE 2 MG/ML CPJ (NOT FOR IM USE) IV ONE (08:30)
[2021-11-18] MEDS ORDERED: NITROGLYCERIN OINT 1GM/INCH UDPKT TD ONE (08:30)
[2021-11-18 09:11] LABS: CLARITY URINE CLEAR (CLEAR); COLOR URINE YELLOW (YELLOW); KETONES URINE TRACE (NEGATIVE); LEUKOCYTE ESTERASE URINE TRACE (NEGATIVE); NITRITE URINE NEGATIVE (NEGATIVE); OCCULT BLOOD URINE NEGATIVE (NEGATIVE); PROTEIN URINE TRACE (NEGATIVE); SPECIFIC GRAVITY URINE 1.024 (1.005-1.030)
[2021-11-18] MEDS ORDERED: NON FORMULARY PATIENT HOME MED XX SCH (10:15)
[2021-11-18] MEDS ORDERED: FAMOTIDINE 20MG TABLET PO SCH (10:45)
[2021-11-18] MEDS: APIXABAN 5 MG TABLET PO SCH ×2 (10:47→17:38)
[2021-11-18] MEDS ORDERED: VISCOUS LIDOCAINE 2% 15 ML UDC MM STA (13:12)
[2021-11-18] MEDS ORDERED: MAGNESIUM/ALUMINUM HYDROXIDE/SIMETHICONE 30ML UDC PO ONE (13:15)
[2021-11-18] MEDS ORDERED: MORPHINE SULFATE 2 MG/ML CPJ (NOT FOR IM USE) IV NR (16:45)
[2021-11-18] MEDS ORDERED: HYDROCODONE/ACETAMINOPHEN 5/325MG TABLET PO ONE (17:30)
[2021-11-18] MEDS: SACUBITRIL/VALSARTAN 24MG/26MG TABLET PO SCH (17:39)
[2021-11-18] MEDS ORDERED: HYDROCODONE/ACETAMINOPHEN 5/325MG TABLET PO NR (20:15)
[2021-11-18 20:25] VITALS: BP 150/101
[2021-11-18] MEDS ORDERED: METO-396 MT (21:56)
[2021-11-18] MEDS ORDERED: NALOXONE HCL 0.4MG/ML VIAL IV PRN (22:00)
[2021-11-18] MEDS: MORPHINE SULFATE 2 MG/ML CPJ (NOT FOR IM USE) IV PRN (22:04)
[2021-11-18] MEDS: CARVEDILOL 3.125 MG TABLET PO SCH (22:09)
[2021-11-18] MEDS ORDERED: LIDOCAINE 5% PATCH TOP PRN (23:00)
[2021-11-19] VITALS: BP 145/86
[2021-11-19 04:00] VITALS: BP 150/79
[2021-11-19] MEDS: MORPHINE SULFATE 2 MG/ML CPJ (NOT FOR IM USE) IV PRN (06:47)
[2021-11-19 07:28] LABS: BASOPHILS % 0.6 % (0.0-2.0); EOSINOPHILS % 3.6 % (0.0-5.0); HEMATOCRIT. 41.7 % (42.0-52.0); HEMOGLOBIN. 14.3 g/dL (14.0-18.0); LYMPHOCYTES % 32.5 % (20.0-50.0); MEAN CORPUSCULAR HEMOGLOBIN 32.3 pg (28.0-32.0); MEAN CORPUSCULAR VOLUME 94.6 fL (80.0-94.0); MEAN PLATELET VOLUME 10.5 fl (7.4-10.4); MONOCYTES % 7.3 % (2.0-8.0); PLATELET 123 x1000/uL (130-400); RED BLOOD CELL COUNT 4.41 mill/uL (4.7-6.1)
[2021-11-19 07:43] LABS: CHLORIDE 108 mEq/L (98-107)
[2021-11-19] MEDS ORDERED: APIXABAN 5 MG TABLET PO SCH (07:50)
[2021-11-19 07:59] LABS: CREATINE KINASE 43 IU/L (39-308)
[2021-11-19 08:00] VITALS: BP 153/109
[2021-11-19] MEDS ORDERED: METOPROLOL SUCCINATE 50MG ER TABLET PO SCH (09:00)
[2021-11-19] MEDS ORDERED: NON FORMULARY PATIENT HOME MED PO SCH (09:00)
[2021-11-19] MEDS ORDERED: FUROSEMIDE 40MG/4ML VIAL IVP SCH (09:00)
[2021-11-19] MEDS ORDERED: PANTOPRAZOLE SODIUM 40 MG/VIAL IV SCH (09:00)
[2021-11-19] MEDS: CARVEDILOL 3.125 MG TABLET PO SCH (10:14)
[2021-11-19] MEDS: APIXABAN 5 MG TABLET PO SCH (10:14)
[2021-11-19] MEDS: SACUBITRIL/VALSARTAN 24MG/26MG TABLET PO SCH (10:15)
[2021-11-19] MEDS ORDERED: MORPHINE SULFATE 2 MG/ML CPJ (NOT FOR IM USE) IV NR (11:15)
[2021-11-19 12:00] VITALS: BP 155/97
[2021-11-19] MEDS ORDERED: ALPRAZOLAM 0.25 MG TABLET PO NR (12:45)
[2021-11-19] MEDS ORDERED: CALCIUM CARBONATE 500MG TABLET CHEW PO NR (12:45)
== END 2021-11-19 17:58 | disposition left against medical advice (07) | DRG 392 ==
LOC: ER 07:01 → 6WST 14:39 → EDBEDREQ 14:46 → EDBEDREQTM 14:46 → ENRESERV 17:44 → CANRESERV 17:44 → ENRESERV 18:05
PROVIDERS: ADMIT Internal Medicine; ATTEND Internal Medicine
DX: K21.9 Gastro-esophageal reflux disease without esophagitis (principal); I48.20 Chronic atrial fibrillation, unspecified; I42.0 Dilated cardiomyopathy; F41.9 Anxiety disorder, unspecified; I11.0 Hypertensive heart disease with heart failure; E78.5 Hyperlipidemia, unspecified; J44.9 Chronic obstructive pulmonary disease, unspecified; Z53.29 Procedure and treatment not carried out because of patient's decision for other reasons; I50.9 Heart failure, unspecified; I25.10 Atherosclerotic heart disease of native coronary artery without angina pectoris; Z20.822 Contact with and (suspected) exposure to COVID-19; F12.90 Cannabis use, unspecified, uncomplicated; Z95.810 Presence of automatic (implantable) cardiac defibrillator; Z87.891 Personal history of nicotine dependence; Z79.01 Long term (current) use of anticoagulants; Z79.899 Other long term (current) drug therapy; Z88.0 Allergy status to penicillin; Z91.041 Radiographic dye allergy status; Z91.013 Allergy to seafood
CPT/HCPCS: 36415; 71045; 80048; 80053; 81003; 82550; 82553; 83735; 83880; 84484; 85025; 87426; 87804; 93005; 93306; 99285; C9113; C9803; J1940; J2270

== ENCOUNTER 2022-01-25 17:43 | Emergency (ER) | payer MEDICARE, MEDICAID ==
[~2022-01-25] VITALS: Ht 193 cm; Wt 100.0 kg
[2022-01-25 18:50] LABS: BASOPHILS % 0.7 % (0.0-2.0); EOSINOPHILS % 1.5 % (0.0-5.0); HEMATOCRIT. 42.7 % (42.0-52.0); HEMOGLOBIN. 14.4 g/dL (14.0-18.0); LYMPHOCYTES % 27.5 % (20.0-50.0); MEAN CORPUSCULAR HEMOGLOBIN 31.9 pg (28.0-32.0); MEAN CORPUSCULAR VOLUME 94.2 fL (80.0-94.0); MEAN PLATELET VOLUME 9.8 fl (7.4-10.4); NEUTROPHILS % 63.3 % (40.0-76.0); PLATELET 116 x1000/uL (130-400); RED BLOOD CELL COUNT 4.53 mill/uL (4.7-6.1); RED CELL DISTRIBUTION WIDTH 13.9 % (11.6-14.6)
[2022-01-25 19:04] LABS: CHLORIDE 109 mEq/L (98-107)
[2022-01-25] MEDS: MAGNESIUM/ALUMINUM HYDROXIDE/SIMETHICONE 30ML UDC PO STA (19:30)
[2022-01-25] MEDS: VISCOUS LIDOCAINE 2% 15 ML UDC PO STA (19:30)
[2022-01-25] MEDS ORDERED: OMEP20TA15 MT (20:16)
[2022-01-25] MEDS ORDERED: XLV MT (20:39)
[2022-01-25 20:50] VITALS: BP 126/82
== END 2022-01-25 20:52 | disposition home or self-care (01) ==
LOC: ER 17:43
DX: K29.70 Gastritis, unspecified, without bleeding (principal); I48.91 Unspecified atrial fibrillation; Z88.0 Allergy status to penicillin; Z91.041 Radiographic dye allergy status; Z79.899 Other long term (current) drug therapy; Z98.890 Other specified postprocedural states
CPT/HCPCS: 36415; 80053; 85025; 93005; 99284

== ENCOUNTER 2022-02-17 13:47 | Emergency (ER) | payer MEDICARE, MEDICAID ==
[~2022-02-17] VITALS: Ht 190.5 cm; Wt 80.0 kg
[~2022-02-17 13:47] MED LIST changes: +FAMO-135 MT; +OMEP20TA15 MT; +XLV MT
[2022-02-17] MEDS ORDERED: metoprolol (13:54)
[2022-02-17] MEDS ORDERED: eliquis (13:54)
[2022-02-17] MEDS ORDERED: FAMOTIDINE 20MG/2ML VIAL IV ONE (14:30)
[2022-02-17] MEDS ORDERED: MAGNESIUM/ALUMINUM HYDROXIDE/SIMETHICONE 30ML UDC PO ONE (14:30)
[2022-02-17 14:52] LABS: BASOPHILS % 0.7 % (0.0-2.0); EOSINOPHILS % 1.2 % (0.0-5.0); HEMATOCRIT. 44.2 % (42.0-52.0); HEMOGLOBIN. 14.5 g/dL (14.0-18.0); LYMPHOCYTES % 21.5 % (20.0-50.0); MEAN CORPUSCULAR HEMOGLOBIN 31.3 pg (28.0-32.0); MEAN CORPUSCULAR VOLUME 95.1 fL (80.0-94.0); MEAN PLATELET VOLUME 10.9 fl (7.4-10.4); MONOCYTES % 4.6 % (2.0-8.0); PLATELET 107 x1000/uL (130-400); RED BLOOD CELL COUNT 4.65 mill/uL (4.7-6.1); RED CELL DISTRIBUTION WIDTH 13.8 % (11.6-14.6)
[2022-02-17 15:29] LABS: CHLORIDE 105 mEq/L (98-107)
[2022-02-17 16:00] VITALS: BP 143/85
[2022-02-17] MEDS ORDERED: VISCOUS LIDOCAINE 2% 15 ML UDC MM PRN (16:15)
== END 2022-02-17 17:09 | disposition left against medical advice (07) ==
LOC: ER 13:47
DX: K21.9 Gastro-esophageal reflux disease without esophagitis (principal); I11.0 Hypertensive heart disease with heart failure; I50.9 Heart failure, unspecified; E11.9 Type 2 diabetes mellitus without complications; I48.91 Unspecified atrial fibrillation; Z95.0 Presence of cardiac pacemaker
CPT/HCPCS: 36415; 71045; 80053; 83880; 84484; 85025; 93005; 96374; 99285; J3490

== ENCOUNTER 2022-04-06 07:17 | Emergency (ER) | payer MEDICARE, MEDICAID ==
[~2022-04-06] VITALS: Ht 182.9 cm; Wt 86.0 kg
[~2022-04-06 07:17] MED LIST changes: +eliquis; +metoprolol
[2022-04-06] MEDS ORDERED: NITROGLYCERIN OINT 1GM/INCH UDPKT TD ONE (08:30)
[2022-04-06 09:14] LABS: BASOPHILS % 0.5 % (0.0-2.0); EOSINOPHILS % 1.1 % (0.0-5.0); HEMATOCRIT. 43.7 % (42.0-52.0); HEMOGLOBIN. 14.7 g/dL (14.0-18.0); LYMPHOCYTES % 14.6 % (20.0-50.0); MEAN CORPUSCULAR HEMOGLOBIN 31.9 pg (28.0-32.0); MEAN CORPUSCULAR VOLUME 95.1 fL (80.0-94.0); MEAN PLATELET VOLUME 10.6 fl (7.4-10.4); MONOCYTES % 4.6 % (2.0-8.0); NEUTROPHILS % 79.2 % (40.0-76.0); PLATELET 124 x1000/uL (130-400); RED CELL DISTRIBUTION WIDTH 15.2 % (11.6-14.6)
[2022-04-06 09:22] LABS: CHLORIDE 110 mEq/L (98-107)
[2022-04-06 09:27] LABS: INR 1.1
[2022-04-06 12:00] VITALS: BP 154/97
[2022-04-06] MEDS ORDERED: MORPHINE SULFATE 2 MG/ML CPJ (NOT FOR IM USE) IV ONE (12:00)
== END 2022-04-06 12:50 | disposition left against medical advice (07) ==
LOC: ER 07:17 → EDBEDREQTM 12:00 → EDBEDREQ 12:00 → ER 12:50 → CANBEDREQ 04-08 00:42
DX: R07.89 Other chest pain (principal); R06.02 Shortness of breath; R10.9 Unspecified abdominal pain; I48.91 Unspecified atrial fibrillation; Z79.01 Long term (current) use of anticoagulants; Z95.810 Presence of automatic (implantable) cardiac defibrillator
CPT/HCPCS: 36415; 71045; 80053; 83880; 84484; 85025; 93005; 99285

== ENCOUNTER 2022-06-12 16:07 | Emergency (ER) | payer BC, MEDICAID ==
[~2022-06-12] VITALS: Ht 193 cm; Wt 86.0 kg
[2022-06-12 16:15] VITALS: BP 140/11
== END 2022-06-12 23:23 | disposition left against medical advice (07) ==
LOC: ER 16:07
DX: Z53.21 Procedure and treatment not carried out due to patient leaving prior to being seen by health care provider (principal)
CPT/HCPCS: 93005; 99283

== ENCOUNTER 2024-11-07 19:43 | Inpatient (IN) | payer MEDICARE, MEDICAID ==
[~2024-11-07] VITALS: Ht 193 cm; Wt 93.0 kg
[2024-11-07 20:53] LABS: BASOPHILS % 0.6 % (0.0-2.0); EOSINOPHILS % 1.7 % (0.0-5.0); HEMATOCRIT. 39.0 % (42.0-52.0); HEMOGLOBIN. 13.1 g/dL (14.0-18.0); LYMPHOCYTES % 28.2 % (20.0-50.0); MEAN PLATELET VOLUME 9.9 fl (7.4-10.4); MONOCYTES % 8.4 % (2.0-8.0); NEUTROPHILS % 61.1 % (40.0-76.0); PLATELET 107 x1000/uL (130-400); RED BLOOD CELL COUNT 4.09 mill/uL (4.7-6.1); RED CELL DISTRIBUTION WIDTH 13.5 % (11.6-14.6)
[2024-11-07 21:08] LABS: CREATININE 1.3 mg/dL (0.6-1.3); UREA NITROGEN BLOOD 14 mg/dL (9-23)
[2024-11-07 21:09] LABS: TROPONIN I HIGH SENSITIVITY 15 ng/L (3.0-53)
[2024-11-07] MEDS: ASPIRIN 81MG TABLET PO ONE (22:13)
[2024-11-07] MEDS: FAMOTIDINE 20MG/2ML VIAL IV ONE (22:13)
[2024-11-07] MEDS: MAGNESIUM/ALUMINUM HYDROXIDE/SIMETHICONE 30ML UDC PO ONE (22:13)
[2024-11-07] MEDS: ONDANSETRON HCL 4MG/2ML INJ IV ONE (22:13)
[2024-11-07] MEDS ORDERED: NITROGLYCERIN 0.4MG TABLET SL SL PRN (22:45)
[2024-11-07] MEDS ORDERED: GUAIFENESIN 200MG/10ML SUGAR FREE UDC PO PRN (22:45)
[2024-11-07] MEDS ORDERED: ACETAMINOPHEN 325MG TABLET PO PRN (22:45)
[2024-11-07] MEDS ORDERED: ONDANSETRON HCL 4MG/2ML INJ IV PRN (22:45)
[2024-11-07] MEDS ORDERED: IPRATROPIUM/ALBUTEROL 0.5-3(2.5)MG/3ML NEB HHN PRN (22:45)
[2024-11-07] MEDS ORDERED: DOCUSATE SODIUM 100MG CAPSULE PO PRN (22:45)
[2024-11-07] MEDS ORDERED: CLONIDINE 0.1MG TABLET PO PRN (22:45)
[2024-11-07] MEDS ORDERED: METO-539 PO (23:30)
[2024-11-07] MEDS ORDERED: SACU1TAB4 PO (23:30)
[2024-11-07 23:54] VITALS: BP 149/90; PULSE 72; RESP 18; TEMP 36.2512
[2024-11-08] VITALS: BP 149/90; PULSE 75; RESP 18; TEMP 36.2; O2SAT 99
[2024-11-08] MEDS: AMLODIPINE 5MG TABLET PO SCH (00:35)
[2024-11-08 04:00] VITALS: BP 132/90; PULSE 80; RESP 19; TEMP 36.5; O2SAT 100
[2024-11-08 06:40] LABS: BASOPHILS % 0.6 % (0.0-2.0); EOSINOPHILS % 3.0 % (0.0-5.0); HEMATOCRIT. 39.2 % (42.0-52.0); HEMOGLOBIN. 13.2 g/dL (14.0-18.0); LYMPHOCYTES % 32.9 % (20.0-50.0); MEAN PLATELET VOLUME 11.0 fl (7.4-10.4); MONOCYTES % 9.6 % (2.0-8.0); NEUTROPHILS % 53.9 % (40.0-76.0); PLATELET 111 x1000/uL (130-400); RED BLOOD CELL COUNT 4.12 mill/uL (4.7-6.1); RED CELL DISTRIBUTION WIDTH 13.8 % (11.6-14.6)
[2024-11-08 07:07] LABS: TROPONIN I HIGH SENSITIVITY 21 ng/L (3.0-53)
[2024-11-08 07:11] LABS: T4 FREE 1.22 ng/dL (0.89-1.76)
[2024-11-08 07:13] LABS: CREATININE 1.0 mg/dL (0.6-1.3); PROTEIN TOTAL 5.8 g/dL (6.0-8.3); TRIGLYCERIDE 54 mg/dL (0-150); UREA NITROGEN BLOOD 12 mg/dL (9-23)
[2024-11-08 07:14] LABS: LDL CHOLESTEROL 48 mg/dL (5-100)
[2024-11-08 07:15] LABS: ASPARTATE AMINOTRANSFERASE 17 IU/L (<34); BILIRUBIN DIRECT 0.2 mg/dL (<=3.0); BILIRUBIN TOTAL 0.6 mg/dL (0.1-1.0)
[2024-11-08 08:00] VITALS: BP 141/89; PULSE 81; RESP 18; TEMP 36.6; O2SAT 100
[2024-11-08] MEDS: PANTOPRAZOLE SODIUM 40 MG/VIAL IV SCH ×2 (08:51→18:50)
[2024-11-08] MEDS: SUCRALFATE 1G TABLET PO SCH (08:52)
[2024-11-08] MEDS: FAMOTIDINE 20MG/2ML VIAL IV SCH (08:52)
[2024-11-08] MEDS: SACUBITRIL/VALSARTAN 24MG/26MG TABLET PO SCH (08:52)
[2024-11-08] MEDS: ENOXAPARIN 40MG/0.4ML SYR SUBCUT SCH (08:53)
[2024-11-08 12:00] VITALS: BP 108/62; PULSE 84; RESP 19; TEMP 36.3; O2SAT 98
[2024-11-08 16:00] VITALS: BP 132/81; PULSE 79; RESP 20; TEMP 36.4; O2SAT 98
[2024-11-08 18:17] LABS: FOLIC ACID (FOLATE) SERUM 13.55 ng/mL (>5.38); VITAMIN B12 SERUM 647 pg/mL (211-911)
[2024-11-08 20:00] VITALS: BP 140/98; PULSE 61; RESP 17; TEMP 36.9; O2SAT 98
[2024-11-08] MEDS ORDERED: CARVEDILOL 3.125 MG TABLET PO SCH (21:00)
[2024-11-08] MEDS: APIXABAN 5 MG TABLET PO SCH (21:47)
[2024-11-08] MEDS: METOPROLOL TARTRATE 25MG TABLET PO SCH (21:53)
[2024-11-08] MEDS: ACETAMINOPHEN 325MG TABLET PO PRN (21:59)
[2024-11-09] VITALS: BP 130/96; PULSE 80; RESP 19; TEMP 36.4; O2SAT 100
[2024-11-09] MEDS: METOCLOPRAMIDE HCL 5MG TABLET PO SCH (00:19)
[2024-11-09 04:00] VITALS: BP 136/95; PULSE 79; RESP 18; TEMP 36.4; O2SAT 100
[2024-11-09 08:00] VITALS: BP 106/66; PULSE 86; RESP 20; TEMP 37.1; O2SAT 98
[2024-11-09] MEDS ORDERED: METO25TA6 PO (10:41)
[2024-11-09] MEDS ORDERED: SUCR1TAB PO (10:41)
[2024-11-09] MEDS ORDERED: METO5TAB2 PO (10:41)
[2024-11-09] MEDS ORDERED: PROT40 PO (10:41)
[2024-11-09] MEDS ORDERED: SACU1TAB PO (10:41)
[2024-11-09 12:00] VITALS: BP 128/88; PULSE 80; RESP 18; TEMP 36.6; O2SAT 100
[2024-11-09 13:05] VITALS: BP 128/88; PULSE 80; TEMP 97.9; O2SAT 100
== END 2024-11-09 14:12 | disposition home or self-care (01) | DRG 392 ==
LOC: ER 19:43 → 8WST 22:21 → EDBEDREQ 22:34 → ENRESERV 22:40
PROVIDERS: ADMIT Hospitalist; ATTEND Hospitalist
DX: K21.9 Gastro-esophageal reflux disease without esophagitis (principal); I42.0 Dilated cardiomyopathy; I48.20 Chronic atrial fibrillation, unspecified; D53.9 Nutritional anemia, unspecified; D69.6 Thrombocytopenia, unspecified; F41.9 Anxiety disorder, unspecified; I11.0 Hypertensive heart disease with heart failure; F12.90 Cannabis use, unspecified, uncomplicated; I25.10 Atherosclerotic heart disease of native coronary artery without angina pectoris; I50.9 Heart failure, unspecified; J44.9 Chronic obstructive pulmonary disease, unspecified; Z79.01 Long term (current) use of anticoagulants; Z79.51 Long term (current) use of inhaled steroids; Z79.899 Other long term (current) drug therapy; Z87.891 Personal history of nicotine dependence; Z88.0 Allergy status to penicillin; Z91.013 Allergy to seafood; Z95.810 Presence of automatic (implantable) cardiac defibrillator
CPT/HCPCS: 36415; 71045; 80048; 80061; 80076; 82607; 82746; 83735; 83880; 84439; 84443; 84484; 85025; 85379; 93005; 99285; J1308; J1650; J2405; J2470; J8597

== ENCOUNTER 2024-12-11 05:21 | Emergency (ER) | payer MEDICARE, MEDICAID ==
[~2024-12-11] VITALS: Ht 193 cm; Wt 90.0 kg
[~2024-12-11 05:21] MED LIST changes: +METO25TA6 PO; +METO5TAB2 PO; -OMEP20TA15 MT; -PANT20TA17 PO; +PROT40 PO; -eliquis; -metoprolol
[2024-12-11 05:37] VITALS: O2SAT 100
[2024-12-11] MEDS: BELLADONNA ALK/PHENOBARB 16.2MG/5ML ORAL SYR PO ONE (06:00)
[2024-12-11 06:11] LABS: BASOPHILS % 0.6 % (0.0-2.0); EOSINOPHILS % 1.6 % (0.0-5.0); HEMATOCRIT. 43.3 % (42.0-52.0); HEMOGLOBIN. 14.5 g/dL (14.0-18.0); LYMPHOCYTES % 24.0 % (20.0-50.0); MEAN PLATELET VOLUME 9.7 fl (7.4-10.4); MONOCYTES % 8.0 % (2.0-8.0); NEUTROPHILS % 65.8 % (40.0-76.0); PLATELET 122 x1000/uL (130-400); RED BLOOD CELL COUNT 4.56 mill/uL (4.7-6.1); RED CELL DISTRIBUTION WIDTH 14.4 % (11.6-14.6)
[2024-12-11] MEDS: ONDANSETRON HCL 4MG/2ML INJ IV ONE (06:11)
[2024-12-11] MEDS: FAMOTIDINE 20MG/2ML VIAL IV ONE (06:11)
[2024-12-11] MEDS: MAGNESIUM HYDROXIDE 400MG/5ML 30ML UDC PO ONE (06:11)
[2024-12-11 06:23] LABS: CREATININE 1.1 mg/dL (0.6-1.3); UREA NITROGEN BLOOD 11 mg/dL (9-23)
[2024-12-11 06:25] LABS: TROPONIN I HIGH SENSITIVITY 15 ng/L (3.0-53)
[2024-12-11] MEDS: VISCOUS LIDOCAINE 2% 15 ML UDC MM ONE (06:58)
[2024-12-11 08:05] LABS: TROPONIN I HIGH SENSITIVITY 14 ng/L (3.0-53)
[2024-12-11 09:18] LABS: TROPONIN I HIGH SENSITIVITY 15 ng/L (3.0-53)
[2024-12-11 10:54] VITALS: BP 124/72; PULSE 80; RESP 25; TEMP 36.7; O2SAT 98
== END 2024-12-11 10:57 | disposition left against medical advice (07) ==
LOC: ER 05:21 → EDBEDREQ 06:49 → EDBEDREQTM 06:49 → CANBEDREQ 10:55 → ER 10:57
DX: R07.2 Precordial pain (principal); J44.9 Chronic obstructive pulmonary disease, unspecified; I48.91 Unspecified atrial fibrillation; Z88.8 Allergy status to other drugs, medicaments and biological substances; Z88.0 Allergy status to penicillin; Z79.899 Other long term (current) drug therapy; Z98.890 Other specified postprocedural states
CPT/HCPCS: 99285; 96374; 71045; 96375; 80048; 85025; 84484; 93005; 36415; J1308; J2405

== ENCOUNTER 2025-04-04 18:17 | Emergency (ER) | payer MEDICARE, MEDICAID ==
[~2025-04-04] VITALS: Ht 193 cm; Wt 91.0 kg
[~2025-04-04 18:17] MED LIST changes: +ATOR20TA65 MT
[2025-04-04 18:19] VITALS: O2SAT 98
[2025-04-04 18:23] VITALS: BP 169/98; PULSE 88; RESP 18; TEMP 36.7; O2SAT 100
[2025-04-04 20:08] LABS: BASOPHILS % 1.1 % (0.0-2.0); EOSINOPHILS % 0.0 % (0.0-5.0); HEMATOCRIT. 43.2 % (42.0-52.0); HEMOGLOBIN. 14.1 g/dL (14.0-18.0); LYMPHOCYTES % 4.6 % (20.0-50.0); MEAN PLATELET VOLUME 10.4 fl (7.4-10.4); MONOCYTES % 7.6 % (2.0-8.0); NEUTROPHILS % 86.7 % (40.0-76.0); PLATELET 106 x1000/uL (130-400); RED BLOOD CELL COUNT 4.59 mill/uL (4.7-6.1); RED CELL DISTRIBUTION WIDTH 14.0 % (11.6-14.6)
[2025-04-04 20:21] LABS: CREATININE 1.2 mg/dL (0.6-1.3); UREA NITROGEN BLOOD 8 mg/dL (9-23)
[2025-04-04 20:22] LABS: TROPONIN I HIGH SENSITIVITY 39 ng/L (3.0-53)
== END 2025-04-04 21:10 | disposition left against medical advice (07) ==
LOC: ER 18:17
DX: R06.02 Shortness of breath (principal); Z53.21 Procedure and treatment not carried out due to patient leaving prior to being seen by health care provider
CPT/HCPCS: 36415; 71045; 80048; 83880; 84484; 85025; 93005; 99281